=== PATIENT | female | born 1970 | race Hispanic/Latino ===

== ENCOUNTER 2017-10-09 14:56 | Emergency (ER) | payer OTHER | END 2017-10-09 15:48 | disposition home or self-care (01) | LOC: EDH 14:56 | DX: H61.22 Impacted cerumen, left ear (principal); I10 Essential (primary) hypertension; E11.9 Type 2 diabetes mellitus without complications | CPT/HCPCS: 69209; 99282 ==

== ENCOUNTER 2023-10-14 14:15 | Emergency (ER) | payer OTHER ==
[~2023-10-14] VITALS: Ht 167.6 cm; Wt 92.1 kg
[2023-10-14 15:15] LABS: SARS-CoV-2, RNA, NAAT NEGATIVE SARS CoV-2 (NEGATIVE)
[2023-10-14 15:21] LABS: INFLUENZA TYPE A Negative For Type A (NEGATIVE); INFLUENZA TYPE B Negative For Type B (NEGATIVE)
[2023-10-14] MEDS ORDERED: CIPR7.5D7 OT (18:48)
[2023-10-14] MEDS ORDERED: CEPH500T PO (18:48)
[2023-10-14] MEDS: CEFTRIAXONE 2GM VIAL IVPB ONE (19:24)
[2023-10-14 19:42] VITALS: BP 121/76; PULSE 95; RESP 16; O2SAT 99
== END 2023-10-14 19:52 | disposition home or self-care (01) ==
LOC: EDH 14:15
DX: H60.93 Unspecified otitis externa, bilateral (principal); Z20.822 Contact with and (suspected) exposure to COVID-19
CPT/HCPCS: 99284; 96365; 87635; 87804 ×2; J0696

== ENCOUNTER 2024-05-30 14:57 | Emergency (ER) | payer SELFPAY ==
[~2024-05-30] VITALS: Ht 160 cm; Wt 88.5 kg
[~2024-05-30 14:57] MED LIST: CEPH500T PO; CIPR7.5D7 OT
--- NOTE | 2024-05-30 15:39 | HMCIMG ---
Exam Type: CT ABDOMEN/PELVIS W/O CONTRAST Clinical Information: ABD PAIN Comparison: None CT Dose Index (CTDI): 10.20 mGy Dose Length Product (DLP): 530.00 total mGy-cm PROTOCOL: Routine noncontrast helical scanning of the abdomen and pelvis was performed at 5mm collimation. Findings: No evidence of nephro or ureterolithiasis is found. No hydronephrosis or ureteral dilatation is seen. The lung bases are clear. The stomach is unremarkable. It shows no wall thickening. No gross ulceration is seen. It is not overly distended. There are no surrounding inflammatory changes. No wall lesions are identified to suggest cancer. The spleen is unremarkable. It is not enlarged. The pancreas shows normal anatomy. It is not fatty replaced. It shows no lesions. The pancreatic duct is not dilated. The gallbladder is unremarkable. It shows no cholelithiasis. The gallbladder wall is normal in thickness. There is no pericholecystic fluid. The is no acute or chronic inflammation noted. The adrenal glands are unremarkable. There is no enlargement. No lesions are noted. The liver is unremarkable. It shows no focal masses. The appendix is unremarkable. It shows no evidence of inflammation. No appendicolith is seen. The small bowel is unremarkable. There is no evidence of dilatation to suggest obstruction. No evidence of adynamic ileus is seen. There is no small bowel wall thickening to suggest enteritis. The colon is unremarkable. The urinary bladder is unremarkable. There is no wall thickening to suggest tumor or inflammation. There are no intraluminal calculi. There are no diverticula. There is no evidence of chronic bladder outlet obstruction. There is no evidence of urinary bladder distention to suggest urinary retention. The other pelvic structures are unremarkable. The bony and vascular structures are unremarkable for the patient's age. IMPRESSION: NEGATIVE CT SCAN OF THE ABDOMEN AND PELVIS. NO RENAL STONES. NO ACUTE PATHOLOGY OR INFLAMMATION SEEN. This study was performed using dose reduction techniques to include automated exposure control and/or adjustment of the mA and/or kV according to patient size.
[2024-05-30 17:32] LABS: APPEARANCE,URINE CLEAR (CLEAR); BILIRUBIN,URINE NEGATIVE (NEGATIVE); COLOR,URINE COLORLESS (YELLOW); GLUCOSE, URINE (UA) NEGATIVE (NEGATIVE); KETONES,URINE NEGATIVE (NEGATIVE); LEUKOCYTE ESTERASE ,URINE NEGATIVE Leu/uL (NEGATIVE); NITRATE,URINE NEGATIVE (NEGATIVE); OCCULT BLOOD,URINE SMALL (NEGATIVE); PROTEIN,URINE NEGATIVE (NEGATIVE); UROBILINOGEN,URINE 0.2 mg/dL (0.2-1.0)
[2024-05-30 17:38] LABS: ADD UA MICROSCOPIC YES
[2024-05-30 17:41] LABS: BACTERIA,URINE RARE /HPF (None Seen); MUCUS,URINE RARE LPF (None Seen); RBC,URINE 0-1 /HPF (0-1); SQUAMOUS EPITHELIAL CELL,UR RARE /HPF (0-2)
[2024-05-30 18:26] LABS: BASOPHILS # (AUTO) 0.06 K/uL (0.00-0.20); BASOPHILS % (AUTO) 0.6 % (0.0-5.0); EOSINOPHILS # (AUTO) 0.15 K/uL (0.00-0.70); EOSINOPHILS % (AUTO) 1.4 % (0.0-8.0); HEMATOCRIT 50.1 % (36-48); IMMATURE GRANULOCYTE ABSOLUTE 0.06 K/uL (0-1); LYMPHOCYTES % (AUTO) 19.2 % (21.0-51.0); MEAN CORPUSCULAR HEMOGLOBIN 30.4 pg (27.0-33.0); MEAN CORPUSCULAR HGB CONC 33.1 g/dL (32.0-36.0); MEAN CORPUSCULAR VOLUME 91.8 fL (79-99); MONOCYTES # (AUTO) 0.5 K/uL (0.1-1.0); MONOCYTES % (AUTO) 4.9 % (3.0-13.0); NEUTROPHILS # (AUTO) 7.8 K/uL (1.8-7.7); NEUTROPHILS % (AUTO) 73.3 % (40.0-77.0); PLATELET COUNT (AUTO) 340 K/uL (130-400); RED BLOOD CELL COUNT(AUTO) 5.46 MIL/uL (4.00-5.50); RED CELL DISTRIBUTION WIDTH 12.9 % (11.0-15.5); WHITE BLOOD COUNT (AUTO) 10.6 K/uL (4.8-10.8)
--- NOTE | 2024-05-30 18:35 | ERN ---
General Chief Complaint: Flank Pain Stated Complaint: RIGHT BACK PAIN Source: patient History of Present Illness Initial Comments THIS IS A 54-YEAR-OLD FEMALE COMING IN TO BE EVALUATED FOR RIGHT FLANK PAIN. PATIENT STATES THAT THE RIGHT FLANK PAIN HAS BEEN ONGOING FOR ONE WEEK. SHE STATES THAT THE PAIN IS EXACERBATED WITH MOVEMENT. PATIENT LOCALIZES THE PAIN TO THE RIGHT CVA ANGLE. NO DYSURIA NOR HEMATURIA NO FEVER OR CHILLS. Allergies: Coded Allergies: No Known Allergies (Unverified Allergy, Unknown, 10/14/23) Home Meds Active Scripts Ciprofloxacin HCl/Dexameth (Ciproflox-Dexameth Otic Susp) 0.3 %-0.1 % Drops.susp, 7.5 ML OT BID for 7 Days, #1 DROP Prov:RACHAEL FUCHS 10/14/23 Cephalexin (Cephalexin) 500 Mg Tablet, 500 MG PO BID for 7 Days, #14 TAB Prov:RACHAEL FUCHS 10/14/23 Past Medical History Past Medical History: Anxiety, Hypertension, Hypothyroid Past Surgical History: None ROS Dictation CONSTITUTIONAL: NO CHILLS, NO FEVER, NO WEAKNESS, NO DIAPHORESIS, NO MALAISE. HEAD/FACE: NO SIGNS OF TRAUMA. EENT: NO EYE PAIN, NO BLURRED VISION, NO TEARING, NO DOUBLE VISION, NO EAR PAIN, NO EAR DISCHARGE, NO NOSE PAIN, NO NASAL CONGESTION, NO THROAT PAIN, NO THROAT SWELLING, NO MOUTH PAIN. RESPIRATORY: NO COUGH, NO ORTHOPNEA, NO SOB, NO STRIDOR, NO WHEEZING. CARDIOVASCULAR: NO CHEST PAIN, NO EDEMA, NO PALPITATIONS, NO SYNCOPE. GASTROINTESTINAL/ABDOMINAL: NO ABDOMINAL PAIN, NO CONSTIPATION, NO DIARRHEA, NO NAUSEA, NO VOMITING. GENITOURINARY: NO ABNORMAL DISCHARGE, NO DYSURIA, NO FREQUENT URINATION, NO HEMATURIA. NO COMPLAINTS OF PAIN IN THE GENITALS. MUSCULOSKELETAL: BACK PAIN, NO GOUT, NO JOINT PAIN, NO JOINT SWELLING, NO MUSCLE PAIN, NO MUSCLE STIFFNESS, NO NECK PAIN. INTEGUMENTARY: NO CHANGE IN COLOR, NO CHANGE IN HAIR/NAILS, NO DRYNESS, NO LESION, NO LUMPS, NO RASH. NEUROLOGICAL/PSYCH: NO ANXIETY, NOT DEPRESSED, NO EMOTIONAL PROBLEM, NO HEADACHE, NO NUMBNESS, NO PRE-EXISTING DEFICIT, NO HISTORY OF SEIZURES, NO TREMORS, NO WEAKNESS. HEMATOLOGIC/LYMPHATIC: NOT ANEMIC, NO HISTORY OF BLOOD CLOTS, NO APPARENT BLEEDING, NO BRUISING, GLANDS NOT SWOLLEN. ALL SYSTEMS NEGATIVE, EXCEPT NOTED. Physical Exam Physical Exam Dictation VITAL SIGNS: REVIEWED. GENERAL APPEARANCE: ALERT, ORIENTED X3, NO ACUTE DISTRESS, OBESE. HEAD AND FACE: NON-TRAUMATIC. EYES: PERRL, PINK CONJUNCTIVAS, EYELID NO TRAUMA, ANTERIOR CHAMBER CLEAR. EARS: PINNAS INTACT AND NO SIGNS OF TRAUMA OR ERYTHEMA. EAR CANALS CLEAR AND NO DISCHARGE. TMS NO ERYTHEMA. NOSE: NO DISCHARGE, NO BLEEDING. OROPHARYNX: MOUTH NORMAL, TEETH NO CARIES, TONGUE PINK. PHARYNX CLEAR, NO ERYTHEMA. TONSILS NO EXUDATES, NO ABSCESSES NOTED. MUCOUS MEMBRANE MOIST. NECK: SUPPLE, NON-TENDER, NO THYROMEGALY, NO MASSES, NO JVD, NO BRUITS. BREAST: DEFERRED. CHEST: NO TENDERNESS, NO CREPITUS, NO PARADOXICAL MOVEMENT, NO RETRACTIONS. LUNGS: CLEAR, WELL-VENTILATED, SYMMETRIC, NO RALES, NO WHEEZING, NO RHONCHI, NO STRIDOR, GOOD BREATH SOUNDS BILATERALLY. HEART: REGULAR RATE, REGULAR RHYTHM, NO MURMUR, NO GALLOPS. VASCULAR: NO PERIPHERAL EDEMA. ABDOMEN: SOFT, POSITIVE BOWEL SOUNDS, NONDISTENDED, NO GUARDING, NONTENDER, NO REBOUND, NO MASSES NO HEPATOMEGALY, NO SPLENOMEGALY, NO COLE'S SIGN, NO HERNIAS. RECTAL: DEFERRED. GENITAL: DEFERRED. NEUROLOGICAL: NORMAL SPEECH, GROSS MOTOR FUNCTION INTACT, GROSS SENSORY FUNCTION INTACT. MUSCULOSKELETAL: NECK NONTENDER, FULL RANGE OF MOTION, BACK NONTENDER, FULL RANGE OF MOTION. EXTREMITIES: NONTENDER, FULL RANGE OF MOTION. SKIN: COLOR PINK, DRY, NO TURGOR, NO RASH, NO LACERATIONS, NO ABRASIONS, NO CONTUSIONS. LYMPHATICS: DEFERRED. Results Laboratory and Microbiology Lab and Micro Result Laboratory Tests Test 05/30/24 17:14 05/30/24 18:03 Urine Color COLORLESS (YELLOW) Urine Appearance CLEAR (CLEAR) Urine pH 5.0 (5.0-8.0) Urine Specific Huddy 1.007 (1.001-1.031) Urine Protein NEGATIVE mg/dL (NEGATIVE) Urine Glucose (UA) NEGATIVE mg/dL (NEGATIVE) Urine Ketones NEGATIVE mg/dL (NEGATIVE) Urine Occult Blood SMALL (NEGATIVE) H Urine Nitrate NEGATIVE (NEGATIVE) Urine Bilirubin NEGATIVE mg/dL (NEGATIVE) Urine Urobilinogen 0.2 mg/dL (0.2-1.0) Urine Leukocyte Esterase NEGATIVE Yovana/uL Urine RBC 0-1 /HPF (0-1) Urine WBC 2-5 /HPF (0-1) H Urine Squamous Epithelial Cells RARE /HPF (0-2) Urine Bacteria RARE /HPF (None Seen) White Blood Count 10.6 K/uL (4.8-10.8) Red Blood Count 5.46 MIL/uL (4.00-5.50) Hemoglobin 16.6 g/dL (12.0-16.0) H Hematocrit 50.1 % (36-48) H Mean Corpuscular Volume 91.8 fL (79-99) Mean Corpuscular Hemoglobin 30.4 pg (27.0-33.0) Mean Corpuscular Hemoglobin Concent 33.1 g/dL (32.0-36.0) Red Cell Distribution Width 12.9 % (11.0-15.5) Platelet Count 340 K/uL (130-400) Mean Platelet Volume 11.3 fL (7.5-10.5) H Immature Granulocyte % (Auto) 0.6 % (0-1) Neutrophils (%) (Auto) 73.3 % (40.0-77.0) Lymphocytes (%) (Auto) 19.2 % (21.0-51.0) L Monocytes (%) (Auto) 4.9 % (3.0-13.0) Eosinophils (%) (Auto) 1.4 % (0.0-8.0) Basophils (%) (Auto) 0.6 % (0.0-5.0) Neutrophils # (Auto) 7.8 K/uL (1.8-7.7) H Lymphocytes # (Auto) 2.0 K/uL (1.0-4.8) Monocytes # (Auto) 0.5 K/uL (0.1-1.0) Eosinophils # (Auto) 0.15 K/uL (0.00-0.70) Basophils # (Auto) 0.06 K/uL (0.00-0.20) Absolute Immature Granulocyte (auto 0.06 K/uL (0-1) Nucleated Red Blood Cells 0.0 % (0.0-0.19) Sodium Level 138 mmol/L (136-145) Potassium Level 3.6 mmol/L (3.5-5.1) Chloride Level 101 mmol/L (101-111) Carbon Dioxide Level 29 mmol/L (21-32) Blood Urea Nitrogen 14 mg/dL (7-18) Creatinine 0.9 mg/dL (0.5-1.0) Glomerular Filtration Rate Calc 75 mL/min (>90) Random Glucose 127 mg/dL (70-105) H Total Calcium 9.8 mg/dL (8.5-10.1) Labs Reviewed?: Yes EKG/XRAY/US/CT/MRI CT Scan Comment [facility] [address] [place] [address] IMAGING REPORT Signed PATIENT: SHASHANK LEE MR#: [id number] : 1970 SEX: F AGE: 54 LOCATION: [facility] ORDER 1512 STATUS: REG REPORT#: [id number] SERVICE 1511 REASON: ABD PAIN ORDERING PHYSICIAN: CHINMAY RICHARD MD PROCEDURE: ABD PEL WO - CT ABDOMEN/PELVIS W/O CONTRAST Exam Type: CT ABDOMEN/PELVIS W/O CONTRAST Clinical Information: ABD PAIN Comparison: None CT Dose Index (CTDI): 10.20 mGy Dose Length Product (DLP): 530.00 total mGy-cm PROTOCOL: Routine noncontrast helical scanning of the abdomen and pelvis was performed at 5mm collimation. Findings: No evidence of nephro or ureterolithiasis is found. No hydronephrosis or ureteral dilatation is seen. The lung bases are clear. The stomach is unremarkable. It shows no wall thickening. No gross ulceration is seen. It is not overly distended. There are no surrounding inflammatory changes. No wall lesions are identified to suggest cancer. The spleen is unremarkable. It is not enlarged. The pancreas shows normal anatomy. It is not fatty replaced. It shows no lesions. The pancreatic duct is not dilated. The gallbladder is unremarkable. It shows no cholelithiasis. The gallbladder wall is normal in thickness. There is no pericholecystic fluid. The is no acute or chronic inflammation noted. The adrenal glands are unremarkable. There is no enlargement. No lesions are noted. The liver is unremarkable. It shows no focal masses. The appendix is unremarkable. It shows no evidence of inflammation. No appendicolith is seen. The small bowel is unremarkable. There is no evidence of dilatation to suggest obstruction. No evidence of adynamic ileus is seen. There is no small bowel wall thickening to suggest enteritis. The colon is unremarkable. The urinary bladder is unremarkable. There is no wall thickening to suggest tumor or inflammation. There are no intraluminal calculi. There are no diverticula. There is no evidence of chronic bladder outlet obstruction. There is no evidence of urinary bladder distention to suggest urinary retention. The other pelvic structures are unremarkable. The bony and vascular structures are unremarkable for the patient's age. IMPRESSION: NEGATIVE CT SCAN OF THE ABDOMEN AND PELVIS. NO RENAL STONES. NO ACUTE PATHOLOGY OR INFLAMMATION SEEN. This study was performed using dose reduction techniques to include automated exposure control and/or adjustment of the mA and/or kV according to patient size. DICTATED BY: FER RIVERS MD DATE: 05/30/24 153 ELECTRONICALLY SIGNED BY: FER RIVERS MD DATE: 05/30/24 153 [facility] MDM: DIFFERENTIAL DIAGNOSIS: RIGHT FLANK PAIN, MUSCLE STRAIN, PATIENT IS A 54-YEAR-OLD FEMALE COMING IN TO BE EVALUATED FOR RIGHT FLANK PAIN. CT OF THE ABDOMEN DID NOT DISCLOSE ACUTE FINDINGS. LABORATORY WORKUP MILD HEMOCONCENTRATED. I ADVISED PATIENT INCREASED WATER INTAKE. PATIENT WILL BE DISCHARGED IN STABLE CONDITION WITH A DIAGNOSIS OF MUSCLE STRAIN. ED Course Orders Procedure Category Date Status Time Cbc With Differential LAB 05/30/24 Complete 15:11 Urinalysis Profile LAB 05/30/24 Complete 15:11 Ct Abdomen/Pelvis W/O CT 05/30/24 Resulted Contrast 15:11 Basic Metabolic Panel LAB 05/30/24 Complete 15:11 Orphenadrine Citrate PHA 05/30/24 Complete (Norflex) 18:30 Ketorolac PHA 05/30/24 Complete Tromethamine 30mg/Ml 18:30 Current Medications Medications (Trade) Dose Ordered Sig/Milagro Route PRN Reason Start Time Stop Time Status Last Admin Dose Admin Ketorolac Tromethamine (toRADol) 30 mg ONCE ONCE IM 05/30/24 18:30 05/30/24 18:31 DC Orphenadrine Citrate (Norflex) 60 mg ONCE ONCE IM 05/30/24 18:30 05/30/24 18:31 DC Vital Signs Date Time Temp Pulse Resp B/P (MAP) Pulse Ox O2 Delivery O2 Flow Rate FiO2 05/30/24 15:07 99.3 111 16 127/88 98 Room Air 0 DX & DISP Disposition: Discharge Departure Impression: Primary Impression: Abdominal muscle strain Additional Impression: Dehydration Condition: Stable Scripts Naproxen (Naproxen) 375 Mg Tablet.dr 375 MG PO BID for 7 Days, #14 TAB Prov: CHINMAY RICHARD MD 05/30/24 Methocarbamol (Robaxin) 750 Mg Tab 1 TAB PO BID for 7 Days, #14 TAB 0 Refills Prov: CHINMAY RICHARD MD 05/30/24 Additional Instructions: FOLLOW-UP WITH PRIMARY CARE PROVIDER IN 1 TO 2 DAYS. TAKE MEDICATIONS DIRECTED HERE IN THE EMERGENCY ROOM. OKAY TO CONTINUE HOME MEDICATIONS UNLESS OTHERWISE DISCUSSED DURING YOUR VISIT IN THE EMERGENCY ROOM TODAY. RETURN TO YOUR NEAREST EMERGENCY ROOM IF SYMPTOMS WORSEN OR IF THERE IS NO IMPROVEMENT. CALL 911 IF YOU NEED IMMEDIATE ASSISTANCE. TAKE TYLENOL [id number] NEEDED AND IF NO CONTRAINDICATIONS ARE PRESENT. INCREASE ORAL HYDRATION. A WOUND CULTURE OR URINE CULTURE WAS ORDERED HERE IN THE EMERGENCY ROOM DEPARTMENT PLEASE FOLLOW-UP WITH PRIMARY CARE PROVIDER AND ADVISE THEM TO GET REPEAT PORTS FROM OUR FACILITY. IF YOU HAD ANY ALVARO WRAP/SPLINTS THAT WERE APPLIED HERE, PLEASE DO NOT REMOVE THEM UNTIL YOU SEE YOUR PRIMARY CARE OR SPECIALTY. REFERRALS: Referrals: MARIN ZENDEJAS MD (PCP) Time of Disposition: 18:38 CHINMAY RICHARD MD May 30, 2024 18:35
[2024-05-30 18:36] LABS: CREATININE 0.9 mg/dL (0.5-1.0); POTASSIUM 3.6 mmol/L (3.5-5.1)
[2024-05-30] MEDS ORDERED: METH-662 PO (18:39)
[2024-05-30] MEDS ORDERED: NAPR-1505 PO (18:40)
[2024-05-30] MEDS: ORPHENADRINE 60MG/2ML IM ONE (19:06)
[2024-05-30] MEDS: ketOROlac 30MG VIAL (30MG/ML) IM ONE (19:06)
[2024-05-30 19:33] VITALS: BP 122/68; PULSE 92; RESP 18; TEMP 98.7; O2SAT 98
== END 2024-05-30 19:35 | disposition home or self-care (01) ==
LOC: EDH 14:57
DX: S39.011A Strain of muscle, fascia and tendon of abdomen, initial encounter (principal); E86.0 Dehydration; E03.9 Hypothyroidism, unspecified; I10 Essential (primary) hypertension; F41.9 Anxiety disorder, unspecified; X58.XXXA Exposure to other specified factors, initial encounter; Y93.89 Activity, other specified; Y92.89 Other specified places as the place of occurrence of the external cause; Y99.8 Other external cause status
CPT/HCPCS: 99285; 74176; 80048; 85025; 81001; 36415; 96372 ×2; J1885; J2360

== ENCOUNTER 2025-03-19 16:30 | Emergency (ER) | payer SELFPAY ==
[~2025-03-19] VITALS: Ht 160 cm; Wt 93.4 kg
[~2025-03-19 16:30] MED LIST changes: +METH-662 PO; +NAPR-1505 PO
--- NOTE | 2025-03-19 16:57 | ERN ---
ED Note History of Present Illness Stated Complaint: BACK PAIN Chief Complaint: Low Back Pain/Injury Time Seen by MD: 16:33 Dictation: PATIENT IS A 54-YEAR-OLD FEMALE HERE WITH HER WITH COMPLAINTS OF AN ACUTE ONSET OF RIGHT LOWER LUMBAR PAIN AND PAIN RUNNING DOWN HER RIGHT LEG ONSET YESTERDAY. SHE STATES SHE WENT TO PICK SOMETHING UP, SHE FELT A POP AND THEN SHE STARTED HAVING THE PAIN WITH SCIATICA. HE HAS HAD NO NAUSEA VOMITING. THERE WAS NO CHANGE IN BOWEL OR BLADDER FUNCTION SHE IS NOT COMPLAINING OF ANY SADDLE PARESTHESIA. THERE WAS NO FOOTDROP. DENIES ANY HISTORY OF PRIOR INJURIES OR SURGERIES TO HER BACK. SHE TOOK A SINGLE ALEVE TABLET THIS MORNING AT 10:00 Allergies: Coded Allergies: No Known Allergies (Unverified Allergy, Unknown, 10/14/23) Home Meds Active Scripts Naproxen (Naproxen) 375 Mg Tablet.dr, 375 MG PO BID for 7 Days, #14 TAB Prov:CHINMAY RICHARD MD 05/30/24 Methocarbamol (Robaxin) 750 Mg Tab, 1 TAB PO BID for 7 Days, #14 TAB 0 Refills Prov:CHINMAY RICHARD MD 05/30/24 Ciprofloxacin HCl/Dexameth (Ciproflox-Dexameth Otic Susp) 0.3 %-0.1 % Drops.susp, 7.5 ML OT BID for 7 Days, #1 DROP Prov:RACHAEL FUCHS 10/14/23 Cephalexin (Cephalexin) 500 Mg Tablet, 500 MG PO BID for 7 Days, #14 TAB Prov:RACHAEL FUCHS 10/14/23 Past Medical History Past Medical History: Hypertension Surgical History: Other History: Not Applicable RN Note Reviewed/Agreed w/PFSH: Yes Review of System Dictation NORMAL ROS CONSTITUTIONAL: NEGATIVE EXCEPT FOR HPI HEAD/FACE: NEGATIVE EXCEPT FOR HPI EENT: NEGATIVE EXCEPT FOR HPI RESPIRATORY: NEGATIVE EXCEPT FOR HPI GASTROINTESTINAL/ABDOMINAL: NEGATIVE EXCEPT FOR HPI GENITOURINARY: NEGATIVE EXCEPT FOR HPI MUSCULOSKELETAL: NEGATIVE EXCEPT FOR HPI ACUTE RIGHT LATERAL LUMBAR PAIN WITH SCIATICA RIGHT LATERAL LEG INTEGUMENTARY: NEGATIVE EXCEPT FOR HPI NEUROLOGICAL/PSYCH: NEGATIVE EXCEPT FOR HPI HEMATOLOGIC/LYMPHATIC: NEGATIVE EXCEPT FOR HPI ALL SYSTEMS NEGATIVE, EXCEPT NOTED ABOVE. 13 POINT REVIEW OF SYSTEMS ASSESSED AND ALL NEGATIVE EXCEPT FOR ABOVE. Initial Vital Sign VS Vital Signs Date Time Temp Pulse Resp B/P (MAP) Pulse Ox O2 Delivery O2 Flow Rate FiO2 03/19/25 16:31 98.6 98 20 147/89 99 Room Air 0 Physical Exam Dictation VITAL SIGNS REVIEWED GENERAL APPEARANCE: ALERT, ORIENTED X 3, MODERATE ACUTE DISTRESS, WELL DEVELOPED, NOURISHED. MORBID OBESITY HEAD AND FACE: NON-TRAUMATIC. EYES: PERRL, PINK CONJUNCTIVAS, EYELID NO TRAUMA, ANTERIOR CHAMBER WITH ARCUS SENILIS. EARS: PINNAS INTACT AND NO SIGNS OF TRAUMA OR ERYTHEMA EAR CANALS CLEAR AND NO DISCHARGE TM NO ERYTHEMA NOSE: NO DISCHARGE, NO BLEEDING. OROPHARYNX: MOUTH NORMAL, TONGUE PINK, PHARYNX CLEAR,NO ERYTHEMA, TONSILS NO EXUDATES, NO ABSCESSES NOTED, MUCOUS MEMBRANE MOIST NECK: SUPPLE, NON-TENDER, NO THYROMEGALY, NO MASSES, NO JVD, NO BRUITS BREAST:DEFERRED CHEST:NO TENDERNESS, NO CREPITUS, NO PARADOXICAL MOVEMENT, NO RETRACTIONS LUNGS:CLEAR, WELL-VENTILATED, SYMMETRIC, NO RALES, NO WHEEZING, NO RHONCHI, NO STRIDOR, GOOD BREATH SOUNDS BILATERALLY HEART: REGULAR RATE, REGULAR RHYTHM, NO MURMUR, NO GALLOPS VASCULAR: NO PERIPHERAL EDEMA, ABDOMEN: SOFT, POSITIVE BOWEL SOUNDS, NONDISTENDED, NO GUARDING, NONTENDER, NO REBOUND, NO MASSES NO HEPATOMEGALY, NO SPLENOMEGALY, NO COLE'S SIGN, NO HERNIAS. RECTAL: DEFERRED GENITAL: DEFERRED NEUROLOGICAL: NORMAL SPEECH, MOTOR FUNCTION INTACT, SENSORY FUNCTION INTACT NO SADDLE PARESTHESIA MUSCULOSKELETAL: NECK NONTENDER, FULL RANGE OF MOTION, RIGHT LATERAL LUMBOSACRAL TENDERNESS WITH PALPATION. NO MIDLINE SPINE PAIN OR STEP-OFF. STRAIGHT LEG RAISE 10 BILATERALLY EXTREMITIES: NONTENDER, FULL RANGE OF MOTION SKIN: COLOR PINK, DRY, NO TURGOR, NO RASH, NO LACERATIONS, NO ABRASIONS, NO CONTUSIONS. LYMPHATIC: DEFERRED Results (Laboratory/Radiology) Laboratory/Radiology 1740/LUMBAR X-RAY DEMONSTRATES DEGENERATIVE CHANGES ONLY. Labs Reviewed?: Yes ED Course ED Course Orders Procedure Category Date Status Time Lumbar Spine 2-3vws RAD 03/19/25 Taken 16:53 Acetaminophen With PHA 03/19/25 Complete Codeine (Tylenol-Code 17:00 Cyclobenzaprine Hcl PHA 03/19/25 Complete (Cyclobenzaprine Hcl 17:00 Dexamethasone 4mg/Ml PHA 03/19/25 Complete 1ml Vial (Dexametha 17:00 Ibuprofen 800 Mg Tab PHA 03/19/25 Complete (Motrin) 17:00 Current Medications Medications (Trade) Dose Ordered Sig/Milagro Route PRN Reason Start Time Stop Time Status Last Admin Dose Admin Acetaminophen/ Codeine Phosphate (TYLenol-coDEINE TAB) 2 tab ONCE ONCE PO 03/19/25 17:00 03/19/25 17:01 DC Cyclobenzaprine HCl (Cyclobenzaprine HCl) 10 mg ONCE ONCE PO 03/19/25 17:00 03/19/25 17:01 DC Dexamethasone Sodium Phosphate (dexaMETHasone 4MG/ML 1ML VIAL) 8 mg ONCE ONCE IM 03/19/25 17:00 03/19/25 17:01 DC Ibuprofen (moTRIN) 800 mg ONCE ONCE PO 03/19/25 17:00 03/19/25 17:01 DC Vital Signs Date Time Temp Pulse Resp B/P (MAP) Pulse Ox O2 Delivery O2 Flow Rate FiO2 03/19/25 16:31 98.6 98 20 147/89 99 Room Air 0 1740/SPOKE TO PATIENT AND HER AT LENGTH REGARDING LAB FINDINGS. THEY ARE AWARE THAT SHE WILL NEED AN MRI DUE TO HER ACUTE RIGHT LOWER LUMBAR PAIN WITH SCIATICA SHE STATES SHE DOES NOT HAVE A PRIMARY CARE DOCTOR. PATIENT WAS DISCHARGED HOME WITH A LIST OF PRIMARY CARE DOCTORS ON STAFF AND MEDICATIONS FOR PAIN Medical Decision Making MDM MEDICAL DISCHARGE MAKING BASED ON EMPIRIC TREATMENT FOR ACUTE RIGHT LUMBAR PAIN WITH SCIATICA LUMBAR FILM DEMONSTRATES DEGENERATIVE CHANGES ONLY PATIENT AND AWARE THAT SHE WILL NEED AN MRI AND LOOK FOR PROBABLE DISC HERNIATION GIVEN A LIST OF PRIMARY CARE DOCTORS ON STAFF AT [facility] [place] PROVIDED WITH IBUPROFEN/FLEXERIL/PREDNISONE/OMEPRAZOLE. NO ACUTE CHANGES IN NEUROVASCULAR STATUS DX & DISP Disposition: Discharge Departure Impression: Primary Impression: Back pain of lumbar region with sciatica Condition: Stable Scripts Prednisone (Prednisone) 20 Mg Tablet 1 TAB PO AD for 6 Days, #14 TAB 0 Refills TAKE 1 TAB BY MOUTH THREE TIMES PER DAY X3 DAYS, THEN TAKE 1 TAB BY MOUTH TWICE A DAY X2 DAYS, THEN TAKE 1 TAB BY MOUTH ONCE A DAY X1 DAY. Prov: ANNE MEDEROS 03/19/25 Cyclobenzaprine HCl (Cyclobenzaprine HCl) 10 Mg Tablet 1 TAB PO TID for muscle spasms for 10 Days, #30 TAB 0 Refills Prov: ANNE MEDEROS 03/19/25 Ibuprofen (Ibuprofen 800 mg Tab) 800 Mg Tab 800 MG PO Q8H PRN for fever or pain, #30 TAB 0 Refills Prov: ANNE MEDEROS 03/19/25 Omeprazole (Omeprazole) 40 Mg Capsule.dr 1 CAP PO DAILY for 30 Days, #30 CAP 0 Refills Prov: ROSA MANNE 03/19/25 Additional Instructions: FOLLOW-UP WITH PRIMARY CARE PROVIDER IN 1 TO 2 DAYS. TAKE MEDICATIONS DIRECTED HERE IN THE EMERGENCY ROOM. OKAY TO CONTINUE HOME MEDICATIONS UNLESS OTHERWISE DISCUSSED DURING YOUR VISIT IN THE EMERGENCY ROOM TODAY. RETURN TO YOUR NEAREST EMERGENCY ROOM IF SYMPTOMS WORSEN OR IF THERE IS NO IMPROVEMENT. CALL 911 IF YOU NEED IMMEDIATE ASSISTANCE. TAKE TYLENOL OR MOTRIN [id number] NEEDED AND IF NO CONTRAINDICATIONS ARE PRESENT. INCREASE ORAL HYDRATION. A WOUND CULTURE OR URINE CULTURE WAS ORDERED HERE IN THE EMERGENCY ROOM DEPARTMENT PLEASE FOLLOW-UP WITH PRIMARY CARE PROVIDER AND ADVISE THEM TO GET REPEAT PORTS FROM OUR FACILITY. IF YOU HAD ANY ALVARO WRAP/SPLINTS THAT WERE APPLIED HERE, PLEASE DO NOT REMOVE THEM UNTIL YOU SEE YOUR PRIMARY CARE OR SPECIALTY. TAKE IBUPROFEN AND FLEXERIL EVERY 8 HOURS WITH FOOD FOR THE NEXT THREE DAYS. TAKE PREDNISONE DIRECTED WITH FOOD UNTIL GONE. TAKE OMEPRAZOLE DIRECTED DAILY TO PROTECT YOUR STOMACH SEE ONE OF THE PRIMARY CARE DOCTORS ON THE LIST GIVEN YOU NEXT ONE TWO DAYS FOR MANAGEMENT Referrals: MARIN ZENDEJAS MD (PCP) Time of Disposition: 17:41 I have reviewed the case, and I agree with, Diagnosis and Plan SWAPNILANNE LAMA Mar 19, 2025 16:56
[2025-03-19] MEDS ORDERED: PRED20TA3 PO (17:42)
[2025-03-19] MEDS ORDERED: OMEP40CA21 PO (17:42)
[2025-03-19] MEDS ORDERED: CYCL-309 PO (17:42)
[2025-03-19] MEDS ORDERED: IBUP-2077 PO (17:42)
[2025-03-19 17:50] VITALS: BP 147/89; PULSE 98; RESP 20; TEMP 98.6; O2SAT 99
--- NOTE | 2025-03-19 17:52 | HMCIMG ---
EXAM: CR Lumbar Spine, 3 View. CLINICAL HISTORY: ACUTE RIGHT LATERAL LUMBAR PAIN WITH SCIATICA. ONSET YESTERDAY COMPARISON: None provided. FINDINGS: BONES: No acute fracture or aggressive appearing osseous lesion. ALIGNMENT: Alignment is within normal limits. No significant scoliosis. DISCS / DEGENERATIVE CHANGES: Mild lumbar spondylosis evident by small anterior osteophytes and syndesmophytes at multiple levels. Mild to moderate multilevel degenerative disc disease, more pronounced at L4-L5 and L5-S1. SOFT TISSUES: The soft tissues are unremarkable. IMPRESSION: 1. No acute findings. 2. Mild to moderate multilevel degenerative disc disease, more pronounced at L4-L5 and L5-S1. /Culdesac
[2025-03-19] MEDS: CYCLOBENZAPRINE HCL 10 MG TABLET PO ONE (17:56)
== END 2025-03-19 18:19 | disposition home or self-care (01) ==
LOC: EDH 16:30
DX: M54.41 Lumbago with sciatica, right side (principal); I10 Essential (primary) hypertension; Z79.899 Other long term (current) drug therapy; Z98.890 Other specified postprocedural states
CPT/HCPCS: 99284; 72100; 96372; J1100